=== PATIENT | female | born 1985 | race Caucasian/White ===

== ENCOUNTER → 2019-01-26 | Outpatient (CLI) | payer OTHER ==
[~2019-01-26] MED LIST: CITA20; IBUP600 PO; IBUP800 PO; ONDA4 PO; OXYACE5T PO
[2019-01-29 05:12] LABS: CHLAMYDIA TRACHOMATIS, NAA Negative (Negative); HPV 16 Negative (Negative); HPV 18 Negative (Negative); HPV OTHER HR TYPES Negative (Negative); NEISSERIA GONORRHOEAE, NAA Negative (Negative)
== END | disposition home or self-care (01) ==
LOC: LAB SHORT 11:34 → LAB 11:34
PROVIDERS: Obstetrics & Gynecology
DX: Z01.419 Encounter for gynecological examination (general) (routine) without abnormal findings (principal); Z11.3 Encounter for screening for infections with a predominantly sexual mode of transmission
CPT/HCPCS: 87491; 87591; 87624; G0123

== ENCOUNTER 2019-02-09 11:30 | Emergency (ER) | payer OTHER ==
[~2019-02-09] VITALS: Ht 167.6 cm; Wt 86.2 kg
[2019-02-09] MEDS ORDERED: SERT100 PO ×2 (13:23→13:35)
[2019-02-09] MEDS ORDERED: TRAZ50 PO (13:34)
[2019-02-09] MEDS ORDERED: Vistaril50 MG PO (14:38)
== END 2019-02-09 15:06 | disposition home or self-care (01) ==
LOC: ER 11:30
DX: F32.9 Major depressive disorder, single episode, unspecified (principal)
CPT/HCPCS: 99283

== ENCOUNTER → 2022-01-29 | Outpatient (CLI) | payer OTHER ==
[~2022-01-29] MED LIST changes: +SERT100 PO; +TRAZ50 PO; +Vistaril50 MG PO
[2022-01-29 13:45] LABS: Candida species (DNA Probe) Negative (NEGATIVE); G. vaginalis (DNA Probe) Positive (NEGATIVE); T. vaginalis (DNA Probe) Negative (NEGATIVE)
[2022-01-31 11:10] LABS: CHLAMYDIA TRACHOMATIS, NAA Negative (Negative); HPV 16 Negative (Negative); HPV 18 Negative (Negative); HPV OTHER HR TYPES Positive (Negative)
== END | disposition home or self-care (01) ==
LOC: LAB SHORT 09:19
PROVIDERS: Obstetrics & Gynecology
DX: Z11.3 Encounter for screening for infections with a predominantly sexual mode of transmission (principal); Z01.419 Encounter for gynecological examination (general) (routine) without abnormal findings; N89.8 Other specified noninflammatory disorders of vagina
CPT/HCPCS: 87480; 87491; 87510; 87591; 87624; 87625; 87660; G0123

== ENCOUNTER → 2023-03-05 | Outpatient (CLI) | payer OTHER ==
[2023-03-07 12:08] LABS: HPV 16 Negative (Negative); HPV 18 Negative (Negative); HPV OTHER HR TYPES Negative (Negative)
== END | disposition home or self-care (01) ==
LOC: LAB SHORT 10:16 → LAB 10:16
PROVIDERS: Advanced Practice Midwife
DX: Z01.419 Encounter for gynecological examination (general) (routine) without abnormal findings (principal)
CPT/HCPCS: 87624; G0145

== ENCOUNTER 2023-09-07 08:57 | Emergency (ER) | payer OTHER ==
[~2023-09-07] VITALS: Ht 167.6 cm; Wt 106.6 kg
[2023-09-07 10:16] VITALS: BP 148/103
[2023-09-07] MEDS ORDERED: SULTRIDS PO (10:58)
== END 2023-09-07 11:10 | disposition home or self-care (01) ==
LOC: ER 08:57
DX: L02.416 Cutaneous abscess of left lower limb (principal); Z79.899 Other long term (current) drug therapy
CPT/HCPCS: 99283-25

== ENCOUNTER 2023-09-22 11:25 | Emergency (ER) | payer OTHER ==
[~2023-09-22] VITALS: Ht 167.6 cm; Wt 108.0 kg
[~2023-09-22 11:25] MED LIST changes: +SULTRIDS PO
[2023-09-22 12:07] LABS: BASOPHILS ABSOLUTE AUTO 0.02 K/mm3 (0.00-0.23); BASOPHILS PERCENT AUTO 0 % (0-2); EOSINOPHILS ABSOLUTE AUTO 0.01 K/mm3 (0.00-0.68); EOSINOPHILS PERCENT AUTO 0 % (0-6); Hemoglobin 13.4 g/dL (11.5-16.0); IMMATURE GRAN ABSOLUTE AUTO 0.04 K/mm3 (0.00-0.10); IMMATURE GRAN PERCENT AUTO 1 % (0-1); LYMPHOCYTES ABSOLUTE AUTO 1.61 K/mm3 (0.84-5.20); LYMPHOCYTES PERCENT AUTO 26 % (21-46); MONOCYTES ABSOLUTE AUTO 0.41 K/mm3 (0.16-1.47); MONOCYTES PERCENT AUTO 7 % (4-13); Mean Corpuscular HGB 29.1 pg (26.0-34.0); Mean Corpuscular HGB Conc 33.5 g/dL (31.5-36.5); Mean Corpuscular Volume 87 fL (80-100); Mean Platelet Volume 9.4 fL (9.1-12.4); NEUTROPHILS ABSOLUTE AUTO 4.13 K/mm3 (1.96-9.15); NEUTROPHILS PERCENT AUTO 66 % (41-73); Platelet Count 215 K/mm3 (150-400); RDW Coefficient Variation 12.3 % (11.7-14.2); RDW Standard Deviation 39.1 fL (35.1-46.3); Red Blood Cell Count 4.61 M/mm3 (3.80-5.20); White Blood Cell Count 6.22 K/mm3 (4.00-11.30)
[2023-09-22 12:14] LABS: Source, Urine Clean Catch
[2023-09-22 12:18] LABS: Bilirubin, Urine Neg (Neg); Blood, Urine 1+ (Neg); Color, Urine Yellow (P-Yellow); Glucose Qualitative, Urine Neg (Neg); Ketones, Urine Neg (Neg); Leukocyte Esterase, Urine 1+ (Neg); Nitrite, Urine Neg (Neg); Protein, Urine 1+ (Neg); Specific Gravity, Urine 1.025 (1.003-1.022); Urobilinogen, Urine 1+ (Normal)
[2023-09-22 12:24] LABS: Appearance, Urine Clear (Clear)
[2023-09-22 12:26] LABS: Bacteria Rare /hpf; Mucus Light (0-Heavy); Red Blood Cells, Urine 0-2 /hpf (0-2); Squamous Epithelial Cells Few /hpf (Few)
[2023-09-22 12:38] LABS: Albumin, Blood 3.4 g/dL (3.4-5.0); Albumin/Globulin Ratio 0.9 (0.8-1.8); Bilirubin, Total 0.4 mg/dL (0.1-1.0); Bun/Creatinine Ratio 11.8 (12.0-20.0); Calcium, Blood 8.6 mg/dL (8.5-10.1); Creatinine, Blood 0.68 mg/dL (0.40-1.00); Globulin, Blood 3.6 g/dL (2.2-4.0); Potassium, Blood 3.7 mmol/L (3.5-5.5)
[2023-09-22] MEDS ORDERED: DOC250 PO (14:21)
[2023-09-22] MEDS ORDERED: ONDA4ODT MM (14:21)
[2023-09-22] MEDS ORDERED: HYDR1TAB94 PO (14:21)
[2023-09-22 14:30] VITALS: BP 139/95
== END 2023-09-22 14:44 | disposition home or self-care (01) ==
LOC: ER 11:25
PROVIDERS: Student in an Organized Health Care Education/Training Program
DX: K63.89 Other specified diseases of intestine (principal); Z79.899 Other long term (current) drug therapy
CPT/HCPCS: 74177; 76830; 76856; 80053; 81001; 81025; 83690; 84703; 85025; 87086; 96374; 96375; 99284-25; J2405; J3010; Q9967

== ENCOUNTER → 2024-09-21 | Outpatient (CLI) | payer OTHER ==
[~2024-09-21] MED LIST changes: +DOC250 PO; +HYDR1TAB94 PO; +ONDA4ODT MM
[2024-09-24 12:23] LABS: C. TRACHOMATIS BY TMA,THINPREP Negative (Negative); N. GONORRHOEAE BY TMA,THINPREP Negative (Negative); SPECIMEN SOURCE Cervical
== END ==
LOC: LAB 11:02 → LAB SHORT 11:02
PROVIDERS: Advanced Practice Midwife
DX: Z11.3 Encounter for screening for infections with a predominantly sexual mode of transmission (principal)
CPT/HCPCS: 87491; 87591

== ENCOUNTER 2024-12-25 00:50 | Emergency (ER) | payer OTHER ==
[~2024-12-25] VITALS: Ht 167.6 cm; Wt 104.3 kg
[2024-12-25 02:01] VITALS: BP 141/112
== END 2024-12-25 02:04 | disposition home or self-care (01) ==
LOC: ER 00:50
DX: K04.7 Periapical abscess without sinus (principal); Z79.899 Other long term (current) drug therapy
CPT/HCPCS: 64400; 99282-25

== ENCOUNTER → 2025-01-06 | Outpatient (CLI) | payer OTHER | END | disposition home or self-care (01) | LOC: LAB 07:50 → LAB SHORT 07:50 → PLD 07:50 | DX: D22.61 Melanocytic nevi of right upper limb, including shoulder (principal); L81.9 Disorder of pigmentation, unspecified | CPT/HCPCS: 88305 ==